=== PATIENT | male | born 1990 | race Hispanic/Latino ===

== ENCOUNTER 2017-11-07 13:30 | Inpatient (IN) ==
[2017-11-08] MEDS ORDERED: LEVOFLOXACIN 750 MG/150 ML BAG IV SCH (07:00)
[2017-11-08] MEDS ORDERED: metroNIDAZOLE 500 MG/100 ML BAG IV SCH (07:00)
--- NOTE | 2017-11-15 06:00 | XRay Report ---
INDICATION: Preoperative evaluation. History of cerebral palsy. TECHNIQUE: AP chest x-ray,portable semiupright COMPARISON: None FINDINGS:There are long length spinal rods in place. There is a foreign device in left upper quadrant consistent with gastrostomy tube. There is a metallic density projected over the cervicothoracic region. Lungs are negative. No parenchymal infiltrate or mass. Heart size and vascularity are normal. No pulmonary edema. No pulmonary congestion. Bella and mediastinum are negative. No pleural fluid. Incidental note is made of degenerative joint disease in the left glenohumeral joint. IMPRESSION: No acute or focal abnormality. Interpreted and Authenticated by: Jono Crow 11/15/17
[2017-11-15 06:47] LABS: Basophils # (Auto) 0 K/mcL (0.0-0.3); Basophils % (Auto) 0.2 % (0.0-2.0); Eosinophils # (Auto) 0.2 K/mcL (0.0-0.7); Granulocytes % (Auto) 61.7 % (38.0-78.0); Lymphocytes # (Auto) 2.7 K/mcL (1.5-4.8); Lymphocytes % (Auto) 28.2 % (15.5-49.0); Mean Cell Volume 95.1 fL (80.0-100.0); Mean Corpuscular HGB Conc 32.3 g/dL (31.0-36.0); Mean Corpuscular Hemoglobin 30.7 pg (26.0-34.0); Monocytes # (Auto) 0.8 K/mcL (0.1-0.9); Monocytes % (Auto) 7.9 % (1.0-12.0); Platelet Count 314 K/mcL (140-440); RBC 3.66 M/mcL (4.50-5.90); Red Cell Distribution Width 16.1 % (11.5-14.5)
[2017-11-15] MEDS ORDERED: LEVOFLOXACIN 750 MG/150 ML BAG IV SCH (07:00)
[2017-11-15] MEDS ORDERED: metroNIDAZOLE 500 MG/100 ML BAG IV SCH (07:00)
[2017-11-15] MEDS ORDERED: IPRATROPIUM/ALBUTEROL 3 ML AMPUL.NEB NEB ONE (07:02)
[2017-11-15] MEDS ORDERED: SCOPOLAMINE 1 PATCH PATCH TOPICAL ONE (07:20)
[2017-11-15] MEDS ORDERED: DEXAMETHASONE 10 MG/ML VIAL IV ONE (07:45)
[2017-11-15] MEDS ORDERED: fentaNYL 250 MCG/5 ML VIAL IV ONE (07:45)
[2017-11-15] MEDS ORDERED: LIDOCAINE HCL/PF 100 MG/5 ML SYRINGE IV ONE (07:45)
[2017-11-15] MEDS ORDERED: PROPOFOL 200 MG/20 ML VIAL IV ONE (07:45)
[2017-11-15] MEDS ORDERED: FAMOTIDINE/PF 20 MG/2 ML VIAL IV ONE (07:45)
[2017-11-15] MEDS ORDERED: KETAMINE 100 MG/ML ML IV ONE (07:45)
[2017-11-15] MEDS ORDERED: MIDAZOLAM 2 MG/2 ML VIAL IV ONE (07:45)
[2017-11-15] MEDS ORDERED: NEOSTIGMINE 1 MG/ML VIAL IV ONE (07:45)
[2017-11-15] MEDS ORDERED: methylPREDNISolone SOD SUCC 125 MG/2 ML VIAL IV ONE (07:45)
[2017-11-15] MEDS ORDERED: GLYCOPYRROLATE 0.2 MG/ML VIAL IV ONE (07:45)
[2017-11-15] MEDS ORDERED: PROMETHAZINE 25 MG/ML VIAL IV ONE (07:45)
[2017-11-15] MEDS ORDERED: PHENYLEPHRINE 10 MG/ML VIAL IV ONE (07:45)
[2017-11-15] MEDS ORDERED: ROCURONIUM 10 MG/ML ML IV ONE (07:45)
[2017-11-15] MEDS ORDERED: ONDANSETRON 4 MG/2 ML VIAL IV ONE (07:45)
[2017-11-15] MEDS ORDERED: fentaNYL 100 MCG/2 ML VIAL IV PRN (08:31)
[2017-11-15] MEDS ORDERED: ACETAMINOPHEN 500 MG/50 ML BOTTLE IV ONE (08:31)
[2017-11-15] MEDS ORDERED: IPRATROPIUM/ALBUTEROL 3 ML AMPUL.NEB NEB PRN (08:31)
[2017-11-15] MEDS ORDERED: ONDANSETRON 4 MG/2 ML VIAL IV PRN ×2 (08:31→10:05)
[2017-11-15] MEDS ORDERED: METHOCARBAMOL 1,000 MG/10 ML VIAL IV PRN (08:31)
[2017-11-15] MEDS ORDERED: NALOXONE HCL 0.4 MG/ML VIAL IV PRN (08:31)
[2017-11-15] MEDS ORDERED: FLUMAZENIL 0.1 MG/ML ML IV PRN (08:31)
[2017-11-15] MEDS ORDERED: MEPERIDINE 25 MG/ML SYRINGE IV PRN (08:31)
[2017-11-15] MEDS ORDERED: LACTATED RINGERS 250 ML IV PRN (08:31)
[2017-11-15] MEDS ORDERED: LACTATED RINGERS 1,000 ML IV SCH (08:45)
--- NOTE | 2017-11-15 09:13 | Brief Operative Note ---
Date of procedure: 11/15/17 Pre-op diagnosis: sacral decubitus; infantile quadriplegic cerebral palsy Post-op diagnosis: same (same) Procedure: permanent end colostomy Grafts/Implants: No Anesthesia: GETA Findings: normal bowel Complications: none Surgeon: Gracy Membreno Estimated blood loss (cc): 20 Specimens Removed/Pathology: none sent Condition: stable Disposition: PACU
[2017-11-15] MEDS ORDERED: ACETAMINOPHEN 1,000 MG/100 ML BOTTLE IV PRN (10:05)
[2017-11-15] MEDS: 0.9 % SODIUM CHLORIDE 1,000 ML IV SCH (10:20)
[2017-11-15] MEDS: IPRATROPIUM/ALBUTEROL 3 ML AMPUL.NEB NEB SCH ×4 (11:00→23:20)
[2017-11-15] MEDS: METOCLOPRAMIDE 10 MG/2 ML VIAL IV SCH ×2 (11:37→17:28)
[2017-11-15] MEDS: metroNIDAZOLE 500 MG/100 ML BAG IV SCH ×2 (11:38→17:28)
[2017-11-15 12:02] LABS: Basophils # (Auto) 0 K/mcL (0.0-0.3); Basophils % (Auto) 0.1 % (0.0-2.0); Eosinophils # (Auto) 0 K/mcL (0.0-0.7); Eosinophils % (Auto) 0.2 % (0.0-7.0); Granulocytes % (Auto) 93.7 % (38.0-78.0); Lymphocytes # (Auto) 0.6 K/mcL (1.5-4.8); Lymphocytes % (Auto) 5.2 % (15.5-49.0); Mean Cell Volume 94.4 fL (80.0-100.0); Mean Corpuscular HGB Conc 32.8 g/dL (31.0-36.0); Monocytes # (Auto) 0.1 K/mcL (0.1-0.9); Monocytes % (Auto) 0.8 % (1.0-12.0); Platelet Count 328 K/mcL (140-440); RBC 3.57 M/mcL (4.50-5.90); Red Cell Distribution Width 16.4 % (11.5-14.5)
[2017-11-15 12:40] LABS: ALT/SGPT 13 U/l (0-40); Albumin 3.4 gm/dL (3.2-5.2); Albumin/Globulin Ratio 0.7 (1.0-2.3); Alkaline Phosphatase 104 U/L (39-117); Bilirubin,Direct < 0.2 mg/dL (0.0-0.3); Blood Urea Nitrogen 11 mg/dl (6-20); Gamma Glutamyl Transpeptidase 113 U/L (8-61)
[2017-11-15] MEDS: PANTOPRAZOLE 40 MG VIAL IV SCH (17:27)
[2017-11-15] MEDS: ACETAMINOPHEN 500 MG/50 ML BOTTLE IV PRN (20:08)
[2017-11-15] MEDS: PHENobarbital 32.4 MG TABLET PT SCH (20:27)
[2017-11-15] MEDS: ZOLPIDEM 5 MG TABLET PO SCH (21:45)
[2017-11-15] MEDS: traZODone HCL 150 MG TABLET PO SCH (22:51)
[2017-11-16] MEDS: metroNIDAZOLE 500 MG/100 ML BAG IV SCH ×4 (01:05→17:03)
[2017-11-16] MEDS: METOCLOPRAMIDE 10 MG/2 ML VIAL IV SCH ×4 (01:05→17:06)
[2017-11-16] MEDS: 0.9 % SODIUM CHLORIDE 1,000 ML IV SCH ×2 (01:30→17:02)
[2017-11-16] MEDS: IPRATROPIUM/ALBUTEROL 3 ML AMPUL.NEB NEB SCH ×7 (03:12→23:20)
[2017-11-16] MEDS: ACETAMINOPHEN 500 MG/50 ML BOTTLE IV PRN ×2 (03:44→11:09)
[2017-11-16 06:44] LABS: ALT/SGPT 11 U/l (0-40); Albumin 2.6 gm/dL (3.2-5.2); Albumin/Globulin Ratio 0.6 (1.0-2.3); Alkaline Phosphatase 84 U/L (39-117); Bilirubin,Direct < 0.2 mg/dL (0.0-0.3); Blood Urea Nitrogen 10 mg/dl (6-20); Gamma Glutamyl Transpeptidase 93 U/L (8-61); Uric Acid 3.9 mg/dL (2.5-8.0)
[2017-11-16 06:50] LABS: Basophils # (Auto) 0 K/mcL (0.0-0.3); Basophils % (Auto) 0.2 % (0.0-2.0); Eosinophils # (Auto) 0 K/mcL (0.0-0.7); Eosinophils % (Auto) 0.1 % (0.0-7.0); Granulocytes % (Auto) 73.1 % (38.0-78.0); Lymphocytes % (Auto) 19.3 % (15.5-49.0); Mean Cell Volume 94.6 fL (80.0-100.0); Mean Corpuscular HGB Conc 32.5 g/dL (31.0-36.0); Mean Corpuscular Hemoglobin 30.7 pg (26.0-34.0); Monocytes # (Auto) 0.7 K/mcL (0.1-0.9); Monocytes % (Auto) 7.3 % (1.0-12.0); Platelet Count 241 K/mcL (140-440); RBC 2.96 M/mcL (4.50-5.90)
[2017-11-16] MEDS: PHENobarbital 32.4 MG TABLET PT SCH ×2 (08:27→20:39)
[2017-11-16] MEDS: LEVOFLOXACIN 500 MG/100 ML BAG IV SCH (08:28)
[2017-11-16] MEDS: PANTOPRAZOLE 40 MG VIAL IV SCH ×2 (08:30→17:08)
--- NOTE | 2017-11-16 11:46 | General Surgery Progress Note ---
Subjective Patient reports: no flatus, no bowel movement, fever Narrative: Note initiated : 11/16/17 at 11:45 am Service Date, if different from initiated Date: [] Patient: Mark Brewer 27 y/o M admitted on 11/15/17 for Permanent Colostomy. Chief Complaint: [Patient is clinically stable. He did have temperature of 100.1 last evening but has been febrile most of the day. Vital signs otherwise stable. His mother seems to feel that his pain has been adequately controlled. White blood count is normal. Hemoglobin is decreased to 9.1] Objective Temp Pulse Resp BP Pulse Ox 98.8 F 110 H 16 102/65 94 11/16/17 11:08 11/16/17 11:19 11/16/17 11:19 11/16/17 11:08 11/16/17 11:08 - Additional Data Intake & Output - Last 24 hours: Intake & Output 11/14/17 11/15/17 11/16/17 11/17/17 05:59 05:59 05:59 05:59 Intake Total 2500 / 2500 260 / 260 Output Total 1080 / 1080 Balance 1420 / 1420 260 / 260 Weight 66 lb 68 lb - General physical appearance moderate pain, cachectic, chronically ill - Eyes other (variable lie movement) - ENT poor half-way - Neck no masses, no bruits, trachea midline, no lymphadectomy, no venous distension - Respiratory other (course tubular breath sounds bilaterally) - Cardiovascular Cardiovascular exam: Present: normal rate and rhythm, +S1, +S2, tachycardia. Absent: JVD - Abdomen tender (rigid abdomen which precludes adequate evaluation; incision looks good; active bowel sounds) - Genitourinary normal penis with no external lesions, testicles present, testicles non-tender - Integumentary other (pressure ulcerations which are being cared for by wound care) - Neurologic other (chronic quadriplegic cerebral palsy; nonresponsive) - Labs 11/16/17 05:12 11/16/17 05:12 Diabetes panel 11/15/17 11/16/17 Range/Units 11:27 05:12 Sodium 139 141 (133-145) mmol/L Potassium 4.1 3.3 (3.3-5.1) mmol/L Chloride 101 107 (96-108) mmol/L Carbon Dioxide 25 21 L (22-30) mmol/L BUN 11 10 (6-20) mg/dl Creatinine 0.5 L 0.4 L (0.7-1.2) mg/dl Glucose 126 H 103 (70-105) mg/dL Calcium 8.7 8.5 L (8.6-10.4) mg/dl AST 13 16 (0-37) U/l ALT 13 11 (0-40) U/l Alkaline Phosphatase 104 84 (39-117) U/L Total Protein 8.0 6.9 (5.9-8.4) gm/dL Albumin 3.4 2.6 L (3.2-5.2) gm/dL Triglycerides 52 78 (<150) mg/dl Calcium panel 11/15/17 11/16/17 Range/Units 11: 05:12 Calcium 8.7 8.5 L (8.6-10.4) mg/dl Phosphorus 2.9 3.1 (2.7-4.5) mg/dL Albumin 3.4 2.6 L (3.2-5.2) gm/dL Pituitary panel 11/15/17 11/16/17 Range/Units 11: 05:12 Sodium 139 141 (133-145) mmol/L Potassium 4.1 3.3 (3.3-5.1) mmol/L Chloride 101 107 (96-108) mmol/L Carbon Dioxide 25 21 L (22-30) mmol/L BUN 11 10 (6-20) mg/dl Creatinine 0.5 L 0.4 L (0.7-1.2) mg/dl Glucose 126 H 103 (70-105) mg/dL Calcium 8.7 8.5 L (8.6-10.4) mg/dl Adrenal panel 11/15/17 11/16/17 Range/Units 11:27 05:12 Sodium 139 141 (133-145) mmol/L Potassium 4.1 3.3 (3.3-5.1) mmol/L Chloride 101 107 (96-108) mmol/L Carbon Dioxide 25 21 L (22-30) mmol/L BUN 11 10 (6-20) mg/dl Creatinine 0.5 L 0.4 L (0.7-1.2) mg/dl Glucose 126 H 103 (70-105) mg/dL Calcium 8.7 8.5 L (8.6-10.4) mg/dl Total Bilirubin < 0.2 < 0.2 (0.0-1.0) mg/dL AST 13 16 (0-37) U/l ALT 13 11 (0-40) U/l Alkaline Phosphatase 104 84 (39-117) U/L Total Protein 8.0 6.9 (5.9-8.4) gm/dL Albumin 3.4 2.6 L (3.2-5.2) gm/dL Assessment and Plan (1) Status post colostomy Status: Acute Assessment and plan: Continue present treatment and support Current Visit: Yes (2) Spastic quadriplegia Status: Chronic Assessment and plan: Continue home medications via PEG tube Current Visit: No (3) Static encephalopathy Status: Chronic Current Visit: No (4) Seizure disorder Status: Chronic Assessment and plan: Continue home medications through PEG tube Current Visit: No (5) CP (cerebral palsy), quadriplegic, infantile Status: Chronic Current Visit: No - Time Spent With Patient Total time spent is greater than 50% in coordination of care (as documented) at patient's floor/unit and/or counseling patient:
[2017-11-16] MEDS: GLYCOPYRROLATE PO SCH ×2 (16:27→20:39)
--- NOTE | 2017-11-16 19:39 | General Surgery Consult Note ---
History of Present Illness Patient information: Note initiated : 11/16/17 at 7:34 pm Service Date, if different from initiated Date: [] Patient: Mark Brewer 27 y/o M admitted on 11/15/17 for Permanent Colostomy. Chief Complaint: [] Consult date: 11/15/17 Requesting physician: Gracy Membreno (Wound Management) History of present illness: This is an established patient at [facility]. Infantile quadriplegia and chronic wasting due to cerebral palsy. Patient recently had a fall with fractured femur and underwent ORIF by Dr. Nolasco. Subsequently developed a grade four sacral pressure ulcer with undermining and tunneling extending superiorly. This will NOT heal. I requested Dr. Gracy Membreno to help out with a diverting colostomy for facilitating his nursing care by mother and sister. Medications and Allergies Home Medications Medication Instructions Recorded Confirmed Type acetaminophen 325 mg PO PRN PRN 03/23/16 11/15/17 History albuterol sulfate 2.5 mg/3 mL 2.5 mg INHALATION Q6H ml 03/23/16 11/14/17 History (0.083 %) solution for nebulization hydroxyzine HCl 25 mg tablet 25 mg PO QHS tab 03/23/16 11/15/17 History phenobarbital 64.8 mg tablet 64.8 mg PO BID 03/23/16 11/15/17 History transparent dressings 2 3/8" X 2 See Dose Instructions .ROUTE 03/23/16 11/15/17 History 3/4" .MEDSUPPLY trazodone 100 mg tablet 300 mg PO QDAY tab 03/23/16 11/15/17 History zolpidem 10 mg tablet 10 mg PO HS 03/23/16 11/15/17 History hydrocodone 5 mg-acetaminophen 325 1 tab PO Q8H PRN #30 tab 04/11/16 11/15/17 Rx mg tablet glycopyrrolate 1 mg/5 mL (0.2 5 ml PO TID ml 10/26/17 11/15/17 History mg/mL) oral solution cefuroxime axetil 250 mg tablet 250 mg PO Q12H 11/13/17 11/15/17 History Methenamine Hippurate 1 g PO TID 11/14/17 11/15/17 History Allergies Allergy/AdvReac Type Severity Reaction Status Date / Time cefepime Allergy Intermediate Rash Verified 11/14/17 16:14 Exam Temp Pulse Resp BP Pulse Ox 98.8 F 112 H 16 133/92 100 11/16/17 16:00 11/16/17 16:00 11/16/17 16:00 11/16/17 16:00 11/16/17 16:00 - General physical appearance other (Chronically Malnourished due to infantile quadriplegia and cerebral palsy. At baseline and in NO distress. Mucoid sputum back of throat. Mucous membranes moist and pink. At baseline. ) - Eyes PERRL - ENT normal mucosa, no congestion - Head Head exam IM: Present: atraumatic - Neck no masses, no bruits, trachea midline, no venous distension - Cardiovascular Cardiovascular exam IM: Present: normal rate and rhythm - Respiratory normal expansion, normal respiratory effort - Abdomen Abdomen: Present: soft, non tender (Post op ileus. dressing CDI. Stoma pink and viable. mucoid blood tinged drainage in bag. No flatus . ) - Genitourinary Present: normal penis with no external lesions, other (Mcgarry catheter draining clear urinne. ) - Integumentary Present: other (Sacral pressure ulcer, grade 4 with undermining and tunneling superiorly. ) - Neurologic Present: other (Infantile quadriplegia due to cerebal palsy. Bed confined. ) - Musculoskeletal Present: other (Bed coninfened / Wasting of extremities due to quadriplegia.) Results - Labs 11/16/17 05:12 11/16/17 05:12 Abnormal lab results 11/16/17 11/16/17 Range/Units 05:12 05:12 RBC 2.96 L (4.50-5.90) M/mcL Hgb 9.1 L (13.5-16.5) g/dL Hct 28.0 L (41.0-55.0) % RDW 16.0 H (11.5-14.5) % MPV 10.7 H (7.4-10.4) fL Carbon Dioxide 21 L (22-30) mmol/L Creatinine 0.4 L (0.7-1.2) mg/dl Calcium 8.5 L (8.6-10.4) mg/dl GGT 93 H (8-61) U/L Albumin 2.6 L (3.2-5.2) gm/dL Globulin 4.3 H (2.2-3.7) gm/dL Albumin/Globulin Ratio 0.6 L (1.0-2.3) Diabetes panel 11/16/17 Range/Units 05:12 Sodium 141 (133-145) mmol/L Potassium 3.3 (3.3-5.1) mmol/L Chloride 107 (96-108) mmol/L Carbon Dioxide 21 L (22-30) mmol/L BUN 10 (6-20) mg/dl Creatinine 0.4 L (0.7-1.2) mg/dl Glucose 103 (70-105) mg/dL Calcium 8.5 L (8.6-10.4) mg/dl AST 16 (0-37) U/l ALT 11 (0-40) U/l Alkaline Phosphatase 84 (39-117) U/L Total Protein 6.9 (5.9-8.4) gm/dL Albumin 2.6 L (3.2-5.2) gm/dL Triglycerides 78 (<150) mg/dl Calcium panel 11/16/17 Range/Units 05:12 Calcium 8.5 L (8.6-10.4) mg/dl Phosphorus 3.1 (2.7-4.5) mg/dL Albumin 2.6 L (3.2-5.2) gm/dL Pituitary panel 11/16/17 Range/Units 05:12 Sodium 141 (133-145) mmol/L Potassium 3.3 (3.3-5.1) mmol/L Chloride 107 (96-108) mmol/L Carbon Dioxide 21 L (22-30) mmol/L BUN 10 (6-20) mg/dl Creatinine 0.4 L (0.7-1.2) mg/dl Glucose 103 (70-105) mg/dL Calcium 8.5 L (8.6-10.4) mg/dl Adrenal panel 11/16/17 Range/Units 05:12 Sodium 141 (133-145) mmol/L Potassium 3.3 (3.3-5.1) mmol/L Chloride 107 (96-108) mmol/L Carbon Dioxide 21 L (22-30) mmol/L BUN 10 (6-20) mg/dl Creatinine 0.4 L (0.7-1.2) mg/dl Glucose 103 (70-105) mg/dL Calcium 8.5 L (8.6-10.4) mg/dl Total Bilirubin < 0.2 (0.0-1.0) mg/dL AST 16 (0-37) U/l ALT 11 (0-40) U/l Alkaline Phosphatase 84 (39-117) U/L Total Protein 6.9 (5.9-8.4) gm/dL Albumin 2.6 L (3.2-5.2) gm/dL All other labs normal. Assessment and Plan (1) Pressure ulcer,stage IV, down to muscle or bone Assessment: Satisfactory post operative progress. Plan: Supportive care. Continue current wound care. Following patient in hospital. APPRECIATE DR. MEMBRENO'S HELP in this patient's care / management. Status: Chronic Priority: Medium Qualifiers: Pressure ulcer location: sacral region Qualified Code(s): L89.154 - Pressure ulcer of sacral region, stage 4 (2) Pressure ulcer, sacrum Status: Chronic Priority: Low Qualifiers: Pressure ulcer stage: stage 4 Qualified Code(s): L89.154 - Pressure ulcer of sacral region, stage 4 (3) Status post colostomy Status: Acute Priority: High
[2017-11-16] MEDS: ZOLPIDEM 5 MG TABLET PO SCH (20:38)
[2017-11-16] MEDS: traZODone HCL 150 MG TABLET PO SCH (20:38)
[2017-11-16] MEDS ORDERED: NON FORMULARY MEDICATION 1 DOSE MISCELL PO SCH (21:00)
[2017-11-17] MEDS: METOCLOPRAMIDE 10 MG/2 ML VIAL IV SCH ×5 (00:07→23:38)
[2017-11-17] MEDS: metroNIDAZOLE 500 MG/100 ML BAG IV SCH ×5 (00:07→23:39)
[2017-11-17] MEDS: IPRATROPIUM/ALBUTEROL 3 ML AMPUL.NEB NEB SCH ×6 (02:40→23:38)
[2017-11-17] MEDS: 0.9 % SODIUM CHLORIDE 1,000 ML IV SCH ×3 (02:59→17:22)
[2017-11-17 06:30] LABS: Basophils # (Auto) 0 K/mcL (0.0-0.3); Basophils % (Auto) 0.1 % (0.0-2.0); Eosinophils # (Auto) 0 K/mcL (0.0-0.7); Eosinophils % (Auto) 0.1 % (0.0-7.0); Granulocytes % (Auto) 76.8 % (38.0-78.0); Lymphocytes # (Auto) 1.8 K/mcL (1.5-4.8); Mean Corpuscular HGB Conc 32.7 g/dL (31.0-36.0); Mean Corpuscular Hemoglobin 31.1 pg (26.0-34.0); Monocytes # (Auto) 0.5 K/mcL (0.1-0.9); Platelet Count 244 K/mcL (140-440); RBC 3.13 M/mcL (4.50-5.90); Red Cell Distribution Width 16.3 % (11.5-14.5)
[2017-11-17 07:09] LABS: ALT/SGPT 13 U/l (0-40); Albumin 3.1 gm/dL (3.2-5.2); Albumin/Globulin Ratio 0.8 (1.0-2.3); Alkaline Phosphatase 88 U/L (39-117); Bilirubin,Direct < 0.2 mg/dL (0.0-0.3); Blood Urea Nitrogen 5 mg/dl (6-20); Gamma Glutamyl Transpeptidase 91 U/L (8-61); Uric Acid 3.8 mg/dL (2.5-8.0)
[2017-11-17] MEDS: LEVOFLOXACIN 500 MG/100 ML BAG IV SCH (09:22)
[2017-11-17] MEDS: PANTOPRAZOLE 40 MG VIAL IV SCH ×2 (09:23→17:18)
[2017-11-17] MEDS: PHENobarbital 32.4 MG TABLET PT SCH ×2 (09:30→20:26)
[2017-11-17] MEDS: GLYCOPYRROLATE PO SCH ×3 (09:34→20:26)
[2017-11-17] MEDS ORDERED: MAGNESIUM HYDROXIDE 30 ML ORAL.SUSP PO ONE (14:32)
--- NOTE | 2017-11-17 14:35 | General Surgery Progress Note ---
Subjective Patient reports: other (patient appears to be clinically stable. He does not appear to be less restless.) Narrative: Note initiated : 11/17/17 at 2:33 pm Service Date, if different from initiated Date: [] Patient: Mark Brewer 27 y/o M admitted on 11/15/17 for Permanent Colostomy. Chief Complaint: [] Objective Temp Pulse Resp BP Pulse Ox 99.2 F H 90 16 116/69 100 11/17/17 11:29 11/17/17 10:25 11/17/17 11:29 11/17/17 11:29 11/17/17 11:29 - Additional Data Intake & Output - Last 24 hours: Intake & Output 11/15/17 11/16/17 11/17/17 11/18/17 05:59 05:59 05:59 05:59 Intake Total 2500 / 2500 1610 / 1610 1300 / 1300 Output Total 1080 / 1080 1135 / 1135 Balance 1420 / 1420 475 / 475 1300 / 1300 Weight 66 lb 68 lb 70 lb 8 oz - General physical appearance moderate pain, cachectic, chronically ill - Eyes other ( Patient is clinically blind) - ENT normal pinna, normal nares, normal mucosa, no hearing loss, no congestion - Neck no masses, no bruits, trachea midline, no lymphadectomy, no venous distension - Respiratory other ( still with coarse tubular breath sounds that appear to be upper airway) - Cardiovascular Cardiovascular exam: Present: tachycardia. Absent: JVD - Abdomen tender ( reacts to discomfort along the incision; stoma looks good and there is a small amount of gas in his bag) - Integumentary other ( pressure ulceration so stable and being cared for by wound care) - Neurologic other ( quadriplegic) - Musculoskeletal other (quadriplegic) - Psychiatric other (disoriented to person place and time; no intelligible speech) - Labs 11/17/17 05:21 11/17/17 05:21 Diabetes panel 11/17/17 Range/Units 05:21 Sodium 141 (133-145) mmol/L Potassium 3.4 (3.3-5.1) mmol/L Chloride 104 (96-108) mmol/L Carbon Dioxide 23 (22-30) mmol/L BUN 5 L (6-20) mg/dl Creatinine 0.4 L (0.7-1.2) mg/dl Glucose 90 (70-105) mg/dL Calcium 8.6 (8.6-10.4) mg/dl AST 22 (0-37) U/l ALT 13 (0-40) U/l Alkaline Phosphatase 88 (39-117) U/L Total Protein 7.1 (5.9-8.4) gm/dL Albumin 3.1 L (3.2-5.2) gm/dL Triglycerides 57 (<150) mg/dl Calcium panel 11/17/17 Range/Units 05:21 Calcium 8.6 (8.6-10.4) mg/dl Phosphorus 2.7 (2.7-4.5) mg/dL Albumin 3.1 L (3.2-5.2) gm/dL Pituitary panel 11/17/17 Range/Units 05:21 Sodium 141 (133-145) mmol/L Potassium 3.4 (3.3-5.1) mmol/L Chloride 104 (96-108) mmol/L Carbon Dioxide 23 (22-30) mmol/L BUN 5 L (6-20) mg/dl Creatinine 0.4 L (0.7-1.2) mg/dl Glucose 90 (70-105) mg/dL Calcium 8.6 (8.6-10.4) mg/dl Adrenal panel 11/17/17 Range/Units 05:21 Sodium 141 (133-145) mmol/L Potassium 3.4 (3.3-5.1) mmol/L Chloride 104 (96-108) mmol/L Carbon Dioxide 23 (22-30) mmol/L BUN 5 L (6-20) mg/dl Creatinine 0.4 L (0.7-1.2) mg/dl Glucose 90 (70-105) mg/dL Calcium 8.6 (8.6-10.4) mg/dl Total Bilirubin 0.2 (0.0-1.0) mg/dL AST 22 (0-37) U/l ALT 13 (0-40) U/l Alkaline Phosphatase 88 (39-117) U/L Total Protein 7.1 (5.9-8.4) gm/dL Albumin 3.1 L (3.2-5.2) gm/dL Assessment and Plan (1) Status post colostomy Status: Acute Assessment and plan: Continue present treatment and support We'll start milk of magnesia 4 doses to stimulate colonic emptying so that I can start feedings Current Visit: Yes (2) Spastic quadriplegia Status: Chronic Assessment and plan: Continue home medications via PEG tube Current Visit: No (3) Static encephalopathy Status: Chronic Current Visit: No (4) Seizure disorder Status: Chronic Assessment and plan: Continue home medications through PEG tube Current Visit: No (5) CP (cerebral palsy), quadriplegic, infantile Status: Chronic Current Visit: No - Time Spent With Patient Total time spent is greater than 50% in coordination of care (as documented) at patient's floor/unit and/or counseling patient:
--- NOTE | 2017-11-17 16:26 | General Surgery Progress Note ---
Subjective Narrative: Note initiated : 11/17/17 at 4:23 pm Service Date, if different from initiated Date: [] Patient: Mark Brewer 27 y/o M admitted on 11/15/17 for Permanent Colostomy. Chief Complaint: []P O Day #2. Uneventful night yesterday. Low grade fever. Good cough. No expectoration, Incision site dressing intact. Stoma viable. flatus + Wounds examined Sacral Grade 4 Decubitus and bilateral trochanteric decubitus and pressure ulcers. Objective Temp Pulse Resp BP Pulse Ox 99.2 F H 100 H 16 116/69 100 11/17/17 11:29 11/17/17 15:13 11/17/17 15:13 11/17/17 11:29 11/17/17 11:29 VSS. No changes ZAC. L/E Wounds : Grade 4 Sacral pressure ulcer . Grade 2 / 3 bilateral greater trochanteric pressure ulcers. - Additional Data Intake & Output - Last 24 hours: Intake & Output 11/15/17 11/16/17 11/17/17 11/18/17 05:59 05:59 05:59 05:59 Intake Total 2500 / 2500 1610 / 1610 1300 / 1300 Output Total 1080 / 1080 1135 / 1135 Balance 1420 / 1420 475 / 475 1300 / 1300 Weight 66 lb 68 lb 70 lb 8 oz - Labs 11/17/17 05:21 11/17/17 05:21 Diabetes panel 11/17/17 Range/Units 05:21 Sodium 141 (133-145) mmol/L Potassium 3.4 (3.3-5.1) mmol/L Chloride 104 (96-108) mmol/L Carbon Dioxide 23 (22-30) mmol/L BUN 5 L (6-20) mg/dl Creatinine 0.4 L (0.7-1.2) mg/dl Glucose 90 (70-105) mg/dL Calcium 8.6 (8.6-10.4) mg/dl AST 22 (0-37) U/l ALT 13 (0-40) U/l Alkaline Phosphatase 88 (39-117) U/L Total Protein 7.1 (5.9-8.4) gm/dL Albumin 3.1 L (3.2-5.2) gm/dL Triglycerides 57 (<150) mg/dl Calcium panel 11/17/17 Range/Units 05:21 Calcium 8.6 (8.6-10.4) mg/dl Phosphorus 2.7 (2.7-4.5) mg/dL Albumin 3.1 L (3.2-5.2) gm/dL Pituitary panel 11/17/17 Range/Units 05:21 Sodium 141 (133-145) mmol/L Potassium 3.4 (3.3-5.1) mmol/L Chloride 104 (96-108) mmol/L Carbon Dioxide 23 (22-30) mmol/L BUN 5 L (6-20) mg/dl Creatinine 0.4 L (0.7-1.2) mg/dl Glucose 90 (70-105) mg/dL Calcium 8.6 (8.6-10.4) mg/dl Adrenal panel 11/17/17 Range/Units 05:21 Sodium 141 (133-145) mmol/L Potassium 3.4 (3.3-5.1) mmol/L Chloride 104 (96-108) mmol/L Carbon Dioxide 23 (22-30) mmol/L BUN 5 L (6-20) mg/dl Creatinine 0.4 L (0.7-1.2) mg/dl Glucose 90 (70-105) mg/dL Calcium 8.6 (8.6-10.4) mg/dl Total Bilirubin 0.2 (0.0-1.0) mg/dL AST 22 (0-37) U/l ALT 13 (0-40) U/l Alkaline Phosphatase 88 (39-117) U/L Total Protein 7.1 (5.9-8.4) gm/dL Albumin 3.1 L (3.2-5.2) gm/dL Assessment and Plan (1) Pressure ulcer,stage IV, down to muscle or bone Status: Chronic Current Visit: Yes (2) Pressure ulcer, sacrum Status: Chronic Current Visit: Yes (3) Status post colostomy Status: Acute Current Visit: Yes - Narrative A/P Narrative: Assessment: Pressure Ulcers wound care reviewed with nursing staff and patient' s mother CG. Plan: Clean sacral pressure ulcer with NS and apply Aquacel AG sheet and Mepilex bordered foam dressing. May remove dressing to clean wound as necessary and reapply. IF the foam dressing is contaminated with stool or purulent debris, REPLACE. Hips and trochanteric wounds to be treated same. Clean with NS . Dry and apply Mepilex foam bordered dressing . O K to discharge from wound care point of view when cleared by Dr. Membreno. If discharged, Follow up at wound clinic in ONE week. - Time Spent With Patient Total time spent is greater than 50% in coordination of care (as documented) at patient's floor/unit and/or counseling patient: 15 - 24 minutes
[2017-11-17] MEDS: traZODone HCL 150 MG TABLET PO SCH (20:26)
[2017-11-17] MEDS: ZOLPIDEM 5 MG TABLET PO SCH (20:26)
[2017-11-18] MEDS ORDERED: MAGNESIUM HYDROXIDE 30 ML ORAL.SUSP ONE (02:46)
[2017-11-18] MEDS: MAGNESIUM HYDROXIDE 30 ML ORAL.SUSP PO SCH ×6 (02:48→21:23)
[2017-11-18] MEDS: 0.9 % SODIUM CHLORIDE 1,000 ML IV SCH ×2 (02:53→20:26)
[2017-11-18] MEDS: IPRATROPIUM/ALBUTEROL 3 ML AMPUL.NEB NEB SCH ×6 (02:54→23:12)
[2017-11-18] MEDS: metroNIDAZOLE 500 MG/100 ML BAG IV SCH ×3 (05:17→18:08)
[2017-11-18] MEDS: METOCLOPRAMIDE 10 MG/2 ML VIAL IV SCH ×3 (05:17→18:06)
[2017-11-18 07:16] LABS: Basophils # (Auto) 0 K/mcL (0.0-0.3); Basophils % (Auto) 0.2 % (0.0-2.0); Eosinophils # (Auto) 0 K/mcL (0.0-0.7); Eosinophils % (Auto) 0.2 % (0.0-7.0); Granulocytes % (Auto) 78.4 % (38.0-78.0); Lymphocytes # (Auto) 1.6 K/mcL (1.5-4.8); Lymphocytes % (Auto) 15.5 % (15.5-49.0); Mean Cell Volume 95.3 fL (80.0-100.0); Mean Corpuscular HGB Conc 32.8 g/dL (31.0-36.0); Mean Corpuscular Hemoglobin 31.2 pg (26.0-34.0); Monocytes # (Auto) 0.6 K/mcL (0.1-0.9); Monocytes % (Auto) 5.7 % (1.0-12.0); Platelet Count 285 K/mcL (140-440); Red Cell Distribution Width 15.7 % (11.5-14.5)
[2017-11-18 08:01] LABS: ALT/SGPT 11 U/l (0-40); Albumin 2.8 gm/dL (3.2-5.2); Albumin/Globulin Ratio 0.7 (1.0-2.3); Alkaline Phosphatase 86 U/L (39-117); Bilirubin,Direct < 0.2 mg/dL (0.0-0.3); Blood Urea Nitrogen 4 mg/dl (6-20); Gamma Glutamyl Transpeptidase 90 U/L (8-61); Uric Acid 4.1 mg/dL (2.5-8.0)
[2017-11-18] MEDS: GLYCOPYRROLATE PO SCH ×3 (08:20→21:31)
[2017-11-18] MEDS: PHENobarbital 32.4 MG TABLET PT SCH ×2 (08:20→20:25)
[2017-11-18] MEDS: LEVOFLOXACIN 500 MG/100 ML BAG IV SCH (08:20)
[2017-11-18] MEDS: PANTOPRAZOLE 40 MG VIAL IV SCH ×2 (08:21→18:08)
[2017-11-18] MEDS ORDERED: POTASSIUM PHOSPHATE 40 MEQ in DEXTROSE 5% IN WATER 500 ML IV ONE ×2 (09:30→13:30)
[2017-11-18] MEDS: SIMETHICONE 40 MG/0.6 ML ML PO PRN ×2 (10:27→21:25)
--- NOTE | 2017-11-18 13:53 | XRay Report ---
CLINICAL INFORMATION: Postsurgical ileus TECHNIQUE: Portable AP supine abdomen COMPARISON: None. FINDINGS: There are vertical skin bruce. There are spinal stabilization rods which extend from the pelvis cephalad to the thoracic spine. Patient has undergone previous posterior bony spinal fusion and decompression. There is gas throughout the colon. Patient apparently has a colostomy. This is not well visualized. Transverse colon is distended and measures 7 cm in cross-sectional diameter. No significant small bowel dilatation. Appearance is consistent with ileus. No evidence for mechanical small bowel obstruction. No biliary or portal venous gas. No pneumatosis. IMPRESSION: 1. Prominent gas-filled colon consistent with postoperative ileus. 2. No evidence for mechanical small bowel obstruction Interpreted and Authenticated by: Jono Crow 11/18/17
--- NOTE | 2017-11-18 14:04 | General Surgery Progress Note ---
Subjective Narrative: Note initiated : 11/18/17 at 2:01 pm Service Date, if different from initiated Date: [] Patient: Mark Brewer 27 y/o M admitted on 11/15/17 for Permanent Colostomy. Chief Complaint: [patient is clinically stable. He has some abdominal distention but has been putting out more gas in his stoma appliance. X-ray shows large volume of gas in his transverse colon but without small bowel distention. There is a small amount of mucus in his stoma pouch but no significant stool. He is otherwise stable.] Objective Temp Pulse Resp BP Pulse Ox 98.8 F 125 H 18 125/78 94 11/18/17 11:54 11/18/17 10:40 11/18/17 11:54 11/18/17 11:54 11/18/17 11:54 - Additional Data Intake & Output - Last 24 hours: Intake & Output 11/16/17 11/17/17 11/18/17 11/19/17 05:59 05:59 05:59 05:59 Intake Total 2500 / 2500 1610 / 1610 2500 / 2500 100 / 100 Output Total 1080 / 1080 1135 / 1135 1050 / 1050 Balance 1420 / 1420 475 / 475 1450 / 1450 100 / 100 Weight 68 lb 70 lb 8 oz 71 lb 8 oz - General physical appearance cachectic, chronically ill - Respiratory other (few coarse tubular breath sounds) - Cardiovascular Cardiovascular exam: Present: +S1, +S2, tachycardia. Absent: JVD - Abdomen distended ( distended with active bowel sounds; healthy stoma in right lower quadrant; incision is unremarkable) - Psychiatric oriented to time, oriented to person, oriented to place, speech is normal, memory intact - Labs 11/18/17 05:26 11/18/17 05:26 Diabetes panel 11/18/17 Range/Units 05:26 Sodium 139 (133-145) mmol/L Potassium 2.6 L* (3.3-5.1) mmol/L Chloride 99 (96-108) mmol/L Carbon Dioxide 24 (22-30) mmol/L BUN 4 L (6-20) mg/dl Creatinine 0.4 L (0.7-1.2) mg/dl Glucose 99 (70-105) mg/dL Calcium 8.2 L (8.6-10.4) mg/dl AST 14 (0-37) U/l ALT 11 (0-40) U/l Alkaline Phosphatase 86 (39-117) U/L Total Protein 6.8 (5.9-8.4) gm/dL Albumin 2.8 L (3.2-5.2) gm/dL Triglycerides 63 (<150) mg/dl Calcium panel 11/18/17 Range/Units 05:26 Calcium 8.2 L (8.6-10.4) mg/dl Phosphorus 2.4 L (2.7-4.5) mg/dL Albumin 2.8 L (3.2-5.2) gm/dL Pituitary panel 11/18/17 Range/Units 05:26 Sodium 139 (133-145) mmol/L Potassium 2.6 L* (3.3-5.1) mmol/L Chloride 99 (96-108) mmol/L Carbon Dioxide 24 (22-30) mmol/L BUN 4 L (6-20) mg/dl Creatinine 0.4 L (0.7-1.2) mg/dl Glucose 99 (70-105) mg/dL Calcium 8.2 L (8.6-10.4) mg/dl Adrenal panel 11/18/17 Range/Units 05:26 Sodium 139 (133-145) mmol/L Potassium 2.6 L* (3.3-5.1) mmol/L Chloride 99 (96-108) mmol/L Carbon Dioxide 24 (22-30) mmol/L BUN 4 L (6-20) mg/dl Creatinine 0.4 L (0.7-1.2) mg/dl Glucose 99 (70-105) mg/dL Calcium 8.2 L (8.6-10.4) mg/dl Total Bilirubin < 0.2 (0.0-1.0) mg/dL AST 14 (0-37) U/l ALT 11 (0-40) U/l Alkaline Phosphatase 86 (39-117) U/L Total Protein 6.8 (5.9-8.4) gm/dL Albumin 2.8 L (3.2-5.2) gm/dL Assessment and Plan (1) Status post colostomy Status: Acute Assessment and plan: Continue present treatment and support We'll start milk of magnesia 4 doses to stimulate colonic emptying so that I can start feedings Current Visit: Yes (2) Spastic quadriplegia Status: Chronic Assessment and plan: Continue home medications via PEG tube Current Visit: No (3) Static encephalopathy Status: Chronic Current Visit: No (4) Seizure disorder Status: Chronic Assessment and plan: Continue home medications through PEG tube Current Visit: No (5) CP (cerebral palsy), quadriplegic, infantile Status: Chronic Current Visit: No - Time Spent With Patient Total time spent is greater than 50% in coordination of care (as documented) at patient's floor/unit and/or counseling patient:
[2017-11-18] MEDS: ZOLPIDEM 5 MG TABLET PO SCH (21:22)
[2017-11-18] MEDS: traZODone HCL 150 MG TABLET PO SCH (23:03)
[2017-11-19] MEDS: METOCLOPRAMIDE 10 MG/2 ML VIAL IV SCH ×4 (00:05→18:07)
[2017-11-19] MEDS: metroNIDAZOLE 500 MG/100 ML BAG IV SCH ×4 (00:06→18:07)
[2017-11-19] MEDS: IPRATROPIUM/ALBUTEROL 3 ML AMPUL.NEB NEB SCH ×6 (03:00→23:11)
[2017-11-19] MEDS: LEVOFLOXACIN 500 MG/100 ML BAG IV SCH (09:03)
[2017-11-19] MEDS: PANTOPRAZOLE 40 MG VIAL IV SCH ×2 (09:03→18:07)
[2017-11-19] MEDS: 0.9 % SODIUM CHLORIDE 1,000 ML IV SCH ×2 (09:03→22:51)
[2017-11-19] MEDS: SIMETHICONE 40 MG/0.6 ML ML PO PRN (09:05)
[2017-11-19] MEDS: GLYCOPYRROLATE PO SCH ×3 (09:12→20:32)
[2017-11-19] MEDS: PHENobarbital 32.4 MG TABLET PT SCH ×3 (09:12→20:31)
--- NOTE | 2017-11-19 13:15 | General Surgery Progress Note ---
Subjective Patient reports: flatus, bowel movement, diarrhea, afebrile Narrative: Note initiated : 11/19/17 at 1:14 pm Service Date, if different from initiated Date: [] Patient: Mark Brewer 27 y/o M admitted on 11/15/17 for Permanent Colostomy. Chief Complaint: [patient appears to be clinically improving.. Vital signs have been stable and he is afebrile. He is finally started having large volume output of stool and gas via his stoma. He does not have any respiratory difficulty. His incision and stoma unremarkable.white blood count is 10 and hemoglobin is 10. Electrolytes are good.] Objective Temp Pulse Resp BP Pulse Ox 98.7 F 90 18 130/78 100 11/19/17 11:31 11/19/17 06:58 11/19/17 11:31 11/19/17 11:31 11/19/17 11:31 - Additional Data Intake & Output - Last 24 hours: Intake & Output 11/17/17 11/18/17 11/19/17 11/20/17 05:59 05:59 05:59 05:59 Intake Total 1610 / 1610 2500 / 2500 2593.1818 / 2593.1818 100 / 100 Output Total 1135 / 1135 1050 / 1050 1225 / 1225 Balance 475 / 475 1450 / 1450 1368.1818 / 1368.1818 100 / 100 Weight 70 lb 8 oz 71 lb 8 oz 69 lb - General physical appearance cachectic, chronically ill, other - Eyes other (clinically blind) - ENT normal pinna, normal nares, normal mucosa, no hearing loss, no congestion - Neck no masses, no bruits, trachea midline, no lymphadectomy, no venous distension - Respiratory other ( decrease in tubular breast) - Cardiovascular Cardiovascular exam: Present: normal rate and rhythm, RRR, +S1, +S2. Absent: JVD, tachycardia - Abdomen distended ( abdomen is less distended; he has good active bowel sounds; he has voluntary guarding; incision is unremarkable; stoma right lower quadrant is functioning and is healthy) - Integumentary other ( pressure ulcerations as noted) - Neurologic other ( spastic quadriplegia) - Musculoskeletal other ( multiple flexion contractures) - Psychiatric other ( disoriented 3) - Labs 11/18/17 05:26 11/18/17 05:26 Assessment and Plan (1) Status post colostomy Status: Acute Assessment and plan: Continue present treatment and support Start full liquid feedings per gastrostomy tube Current Visit: Yes (2) Spastic quadriplegia Status: Chronic Assessment and plan: Continue home medications via PEG tube Current Visit: No (3) Static encephalopathy Status: Chronic Current Visit: No (4) Seizure disorder Status: Chronic Assessment and plan: Continue home medications through PEG tube Current Visit: No (5) CP (cerebral palsy), quadriplegic, infantile Status: Chronic Current Visit: No - Time Spent With Patient Total time spent is greater than 50% in coordination of care (as documented) at patient's floor/unit and/or counseling patient:
[2017-11-19] MEDS: ZOLPIDEM 5 MG TABLET PO SCH (22:42)
[2017-11-19] MEDS: traZODone HCL 150 MG TABLET PO SCH (23:47)
[2017-11-20] MEDS: METOCLOPRAMIDE 10 MG/2 ML VIAL IV SCH ×3 (00:03→13:07)
[2017-11-20] MEDS: metroNIDAZOLE 500 MG/100 ML BAG IV SCH ×3 (00:03→13:05)
[2017-11-20] MEDS: IPRATROPIUM/ALBUTEROL 3 ML AMPUL.NEB NEB SCH ×6 (03:07→23:07)
[2017-11-20] MEDS: SIMETHICONE 40 MG/0.6 ML ML PO PRN ×2 (03:47→22:20)
[2017-11-20 05:50] LABS: Basophils # (Auto) 0 K/mcL (0.0-0.3); Basophils % (Auto) 0.3 % (0.0-2.0); Eosinophils # (Auto) 0.1 K/mcL (0.0-0.7); Eosinophils % (Auto) 0.8 % (0.0-7.0); Granulocytes % (Auto) 59.5 % (38.0-78.0); Lymphocytes % (Auto) 29.6 % (15.5-49.0); Mean Cell Volume 92.6 fL (80.0-100.0); Mean Corpuscular HGB Conc 33.8 g/dL (31.0-36.0); Mean Corpuscular Hemoglobin 31.3 pg (26.0-34.0); Monocytes # (Auto) 0.7 K/mcL (0.1-0.9); Monocytes % (Auto) 9.8 % (1.0-12.0); Platelet Count 306 K/mcL (140-440); RBC 3.05 M/mcL (4.50-5.90)
[2017-11-20] MEDS: 0.9 % SODIUM CHLORIDE 1,000 ML IV SCH ×2 (05:51→13:01)
[2017-11-20 06:16] LABS: ALT/SGPT 10 U/l (0-40); Albumin 2.8 gm/dL (3.2-5.2); Albumin/Globulin Ratio 0.8 (1.0-2.3); Alkaline Phosphatase 75 U/L (39-117); Bilirubin,Direct < 0.2 mg/dL (0.0-0.3); Blood Urea Nitrogen 4 mg/dl (6-20); Gamma Glutamyl Transpeptidase 87 U/L (8-61); Uric Acid 3.5 mg/dL (2.5-8.0)
[2017-11-20] MEDS ORDERED: POTASSIUM PHOSPHATE 40 MEQ in DEXTROSE 5% IN WATER 500 ML IV ONE ×3 (07:20→12:00)
[2017-11-20] MEDS: PANTOPRAZOLE 40 MG VIAL IV SCH (07:43)
[2017-11-20] MEDS: LEVOFLOXACIN 500 MG/100 ML BAG IV SCH (08:30)
[2017-11-20] MEDS: PHENobarbital 32.4 MG TABLET PT SCH ×2 (10:05→20:15)
[2017-11-20] MEDS: GLYCOPYRROLATE PO SCH ×3 (13:05→22:22)
--- NOTE | 2017-11-20 15:08 | General Surgery Progress Note ---
Subjective Patient reports: afebrile, other (patient continues to do well) Narrative: Note initiated : 11/20/17 at 3:06 pm Service Date, if different from initiated Date: [] Patient: Mark Brewer 27 y/o M admitted on 11/15/17 for Permanent Colostomy. Chief Complaint: [patient continues to do well. He is having multiple large bowel movements with passage of large volume of flatus.. His abdomen is less distended. His stoma looks good and his incision is unremarkable.] Objective Temp Pulse Resp BP Pulse Ox 98.9 F 90 18 108/76 97 11/20/17 11:04 11/20/17 06:58 11/20/17 11:04 11/20/17 11:04 11/20/17 11:04 - Additional Data Intake & Output - Last 24 hours: Intake & Output 11/18/17 11/19/17 11/20/17 11/21/17 05:59 05:59 05:59 05:59 Intake Total 2500 / 2500 2593.1818 / 2593.1818 2160 / 2160 567 / 567 Output Total 1050 / 1050 1225 / 1225 2625 / 2625 100 / 100 Balance 1450 / 1450 1368.1818 / 1368.1818 -465 / -465 467 / 467 Weight 71 lb 8 oz 69 lb 71 lb - Neck no masses, no bruits, trachea midline, no lymphadectomy, no venous distension - Respiratory normal expansion, normal respiratory effort, clear to percussion, clear to auscultation - Cardiovascular Cardiovascular exam: Present: normal rate and rhythm, RRR, +S1, +S2, tachycardia. Absent: JVD - Abdomen distended (mildly distended with less tenderness and guarding; good hyperactive bowel sounds) - Labs 11/20/17 04:49 11/20/17 04:49 Diabetes panel 11/20/17 Range/Units 04:49 Sodium 139 (133-145) mmol/L Potassium 2.8 L* (3.3-5.1) mmol/L Chloride 100 (96-108) mmol/L Carbon Dioxide 28 (22-30) mmol/L BUN 4 L (6-20) mg/dl Creatinine 0.3 L (0.7-1.2) mg/dl Glucose 115 H (70-105) mg/dL Calcium 7.7 L (8.6-10.4) mg/dl AST 12 (0-37) U/l ALT 10 (0-40) U/l Alkaline Phosphatase 75 (39-117) U/L Total Protein 6.1 (5.9-8.4) gm/dL Albumin 2.8 L (3.2-5.2) gm/dL Triglycerides 66 (<150) mg/dl Calcium panel 11/20/17 Range/Units 04:49 Calcium 7.7 L (8.6-10.4) mg/dl Phosphorus 1.9 L (2.7-4.5) mg/dL Albumin 2.8 L (3.2-5.2) gm/dL Pituitary panel 11/20/17 Range/Units 04:49 Sodium 139 (133-145) mmol/L Potassium 2.8 L* (3.3-5.1) mmol/L Chloride 100 (96-108) mmol/L Carbon Dioxide 28 (22-30) mmol/L BUN 4 L (6-20) mg/dl Creatinine 0.3 L (0.7-1.2) mg/dl Glucose 115 H (70-105) mg/dL Calcium 7.7 L (8.6-10.4) mg/dl Adrenal panel 11/20/17 Range/Units 04:49 Sodium 139 (133-145) mmol/L Potassium 2.8 L* (3.3-5.1) mmol/L Chloride 100 (96-108) mmol/L Carbon Dioxide 28 (22-30) mmol/L BUN 4 L (6-20) mg/dl Creatinine 0.3 L (0.7-1.2) mg/dl Glucose 115 H (70-105) mg/dL Calcium 7.7 L (8.6-10.4) mg/dl Total Bilirubin < 0.2 (0.0-1.0) mg/dL AST 12 (0-37) U/l ALT 10 (0-40) U/l Alkaline Phosphatase 75 (39-117) U/L Total Protein 6.1 (5.9-8.4) gm/dL Albumin 2.8 L (3.2-5.2) gm/dL Assessment and Plan (1) Status post colostomy Status: Acute Assessment and plan: Continue present treatment and support Start . Diet up to 1600 nicol per day Current Visit: Yes (2) Spastic quadriplegia Status: Chronic Assessment and plan: Continue home medications via PEG tube Current Visit: No (3) Static encephalopathy Status: Chronic Current Visit: No (4) Seizure disorder Status: Chronic Assessment and plan: Continue home medications through PEG tube Current Visit: No (5) CP (cerebral palsy), quadriplegic, infantile Status: Chronic Current Visit: No - Time Spent With Patient Total time spent is greater than 50% in coordination of care (as documented) at patient's floor/unit and/or counseling patient:
[2017-11-20] MEDS ORDERED: POTASSIUM CHLORIDE 20 MEQ PACKET ONE (16:07)
[2017-11-20] MEDS ORDERED: POTASSIUM CHLORIDE 20 MEQ/15 ML ML PT ONE (16:08)
[2017-11-20] MEDS: morphine 20 MG/ML ORAL.CONC SL PRN ×2 (16:13→20:16)
[2017-11-20] MEDS: NEUTRA PHOS 1 PACKET PO SCH (22:18)
[2017-11-20] MEDS: ZOLPIDEM 5 MG TABLET PO SCH (22:18)
[2017-11-20] MEDS: traZODone HCL 150 MG TABLET PO SCH (23:47)
[2017-11-21] MEDS: IPRATROPIUM/ALBUTEROL 3 ML AMPUL.NEB NEB SCH ×3 (03:58→11:05)
[2017-11-21] MEDS: morphine 20 MG/ML ORAL.CONC SL PRN ×3 (03:59→14:46)
[2017-11-21 07:39] LABS: Basophils # (Auto) 0 K/mcL (0.0-0.3); Basophils % (Auto) 0.2 % (0.0-2.0); Eosinophils # (Auto) 0.1 K/mcL (0.0-0.7); Eosinophils % (Auto) 1.3 % (0.0-7.0); Granulocytes % (Auto) 61.7 % (38.0-78.0); Lymphocytes # (Auto) 2.3 K/mcL (1.5-4.8); Mean Corpuscular HGB Conc 32.8 g/dL (31.0-36.0); Mean Corpuscular Hemoglobin 31.2 pg (26.0-34.0); Monocytes # (Auto) 0.6 K/mcL (0.1-0.9); Monocytes % (Auto) 7.8 % (1.0-12.0); Platelet Count 280 K/mcL (140-440); RBC 3.29 M/mcL (4.50-5.90)
[2017-11-21 08:30] LABS: ALT/SGPT 10 U/l (0-40); Albumin/Globulin Ratio 0.9 (1.0-2.3); Alkaline Phosphatase 75 U/L (39-117); Bilirubin,Direct < 0.2 mg/dL (0.0-0.3); Blood Urea Nitrogen 8 mg/dl (6-20); Gamma Glutamyl Transpeptidase 88 U/L (8-61)
[2017-11-21] MEDS: NEUTRA PHOS 1 PACKET PO SCH (08:30)
[2017-11-21] MEDS: PHENobarbital 32.4 MG TABLET PT SCH (08:31)
--- NOTE | 2017-11-21 12:08 | Discharge Summary ---
Providers - Providers Patient information: Note initiated : 11/21/17 at 12:04 pm Service Date, if different from initiated Date: [] Patient: Mark Brewer 27 y/o M admitted on 11/15/17 for Permanent Colostomy. Chief Complaint: [] Date of admission: 11/15/17 Discharge date: 11/21/17 Attending physician: Gracy Membreno Hospitalization Hospital course: 27-year-old male underwent a colostomy for diversion of fecal stream due to poor healing stage IV sacral decubitus. The colostomy was done uneventfully on 15 november. He was admitted and has been followed closely. He did not have any problems referable to the procedure except for postoperative ileus. On the third postoperative day he started passing gas and his intake through his gastrostomy was increased. He is doing well now and is on his regular diet which is primarily a pureed diet. He is having regular bowel movements. His abdominal incision is healing uneventfully. He was followed by wound care and there is slow changes in his decubitus ulcer. The mother has been informed as to how to change his stoma bags. He is stable for discharge and will be followed up in the office on November. Discharge diagnosis: stage IV decubitus ulcer Secondary discharge diagnosis: Quadriplegic cerebral palsy Seizure disorder Reason for admission: poorly healing sacral decubitus due to fecal contamination Procedures: End colostomy for fecal diversion Pertinent studies/significant findings: None Complications: None Exam Temp Pulse Resp BP Pulse Ox 98.5 F 102 H 18 106/67 98 11/21/17 11:57 11/21/17 11:57 11/21/17 11:57 11/21/17 11:57 11/21/17 11:57 - General physical appearance no distress, moderate pain, cachectic, chronically ill, other (quadriplegia with severe cerebral palsy) - Eyes other - ENT normal pinna, normal nares, normal mucosa, no congestion, decreased hearing - Head Head exam IM: Present: atraumatic ( microcephaly) - Neck no masses, no bruits, trachea midline, no lymphadectomy, no venous distension - Cardiovascular Cardiovascular exam IM: Present: normal rate and rhythm, RRR, +S1, +S2, tachycardia. Absent: irregular rhythm, JVD - Respiratory normal expansion, normal respiratory effort, other ( bilateral coarse tubular breath sounds) - Abdomen Abdomen: Present: soft, tender, bowel sounds, wound ( incision healing uneventfully; stoma functioning in right lower quadrant) Hernia: Present: none - Genitourinary Present: normal penis with no external lesions, other ( suprapubic catheter without inflammation) - Rectum Rectum: Present: normal sphincter tone, no hemorrhoids, no tenderness, no masses , no bleeding - Integumentary Present: no rash, other ( stage IV sacral decubitus) - Neurologic Present: other ( quadriplegia with bilateral upper and lower extremity flexion contractures; clinically blind) - Musculoskeletal Present: other ( immobile) - Psychiatric Present: other ( unable to assess mental condition) Discharge Plan - Patient/Caregiver Discharge Instructions Diet: Dysphagia Pureed ( diet will be managed by mother and sister) Additional Instructions: Home health nurse for assistance with stoma care - Follow up Plan Follow up with: Gracy Membreno MD [Physician] - 11/23/17 1:15 pm Disposition: Home Health Service Prognosis: Fair Rehab Potential: Fair I certify that the patient requires SNF services.: No Overall status at discharge: patient is back to baseline Pending Studies Resuscitation Status Do Not Resuscitate Diet Dysphagia Pureed Diet Level 1 Start MonNovember 20 1511 Albuterol/Ipratropium (Duoneb) 3 ml NEB Q4HRT KALEB Last Admin: 11/21/17 11:05 Dose: 3 ml Admin: 11/21/17 07:53 Dose: 3 ml Admin: 11/21/17 03:58 Dose: 3 ml Admin: 11/20/17 23:07 Dose: 3 ml Admin: 11/20/17 19:11 Dose: 3 ml Admin: 11/20/17 15:12 Dose: 3 ml Admin: 11/20/17 11:17 Dose: 3 ml Admin: 11/20/17 06:57 Dose: 3 ml Admin: 11/20/17 03:07 Dose: 3 ml Admin: 11/19/17 23:11 Dose: 3 ml Admin: 11/19/17 19:26 Dose: 3 ml Admin: 11/19/17 15:23 Dose: 3 ml Admin: 11/19/17 10:51 Dose: 3 ml Admin: 11/19/17 06:39 Dose: 3 ml Admin: 11/19/17 03:00 Dose: 3 ml Admin: 11/18/17 23:12 Dose: 3 ml Admin: 11/18/17 19:35 Dose: 3 ml Admin: 11/18/17 15:26 Dose: 3 ml Admin: 11/18/17 10:40 Dose: 3 ml Admin: 11/18/17 08:08 Dose: Not Given Admin: 11/18/17 02:54 Dose: 3 ml Admin: 11/17/17 23:38 Dose: 3 ml Admin: 11/17/17 18:56 Dose: 3 ml Admin: 11/17/17 15:12 Dose: 3 ml Admin: 11/17/17 10:23 Dose: 3 ml Admin: 11/17/17 07:12 Dose: Not Given Admin: 11/17/17 02:40 Dose: 3 ml Admin: 11/16/17 23:20 Dose: Not Given Admin: 11/16/17 19:07 Dose: 3 ml Admin: 11/16/17 15:40 Dose: 3 ml Admin: 11/16/17 11:18 Dose: 3 ml Admin: 11/16/17 06:30 Dose: 3 ml Admin: 11/16/17 03:47 Dose: 3 ml Admin: 11/16/17 03:12 Dose: Not Given Admin: 11/15/17 23:20 Dose: Not Given Admin: 11/15/17 19:46 Dose: 3 ml Admin: 11/15/17 16:24 Dose: Not Given Admin: 11/15/17 11:00 Dose: Not Given Morphine Sulfate (Morphine) 15 mg SL Q4HP PRN PRN Reason: Pain Last Admin: 11/21/17 08:37 Dose: 15 mg Admin: 11/21/17 03:59 Dose: 15 mg Admin: 11/20/17 20:16 Dose: 15 mg Admin: 11/20/17 16:13 Dose: 15 mg Glycopyrrolate [ (Cuvposa] 5 Ml) 1 dose PO TID KALEB Last Admin: 11/20/17 22:22 Dose: 1 dose Admin: 11/20/17 18:35 Dose: Admin: 11/20/17 13:05 Dose: Not Given Admin: 11/19/17 20:32 Dose: Admin: 11/19/17 15:16 Dose: Not Given Admin: 11/19/17 09:12 Dose: Admin: 11/18/17 21:31 Dose: Admin: 11/18/17 14:18 Dose: Admin: 11/18/17 08:20 Dose: 1 dose Admin: 11/17/17 20:26 Dose: 1 dose Admin: 11/17/17 17:18 Dose: 1 dose Admin: 11/17/17 09:34 Dose: 1 dose Admin: 11/16/17 20:39 Dose: 1 dose Admin: 11/16/17 16:27 Dose: 1 dose Phenobarbital (Phenobarbital) 64.8 mg PT BID [facility] Last Admin: 11/21/17 08:31 Dose: 64.8 mg Admin: 11/20/17 20:15 Dose: 64.8 mg Admin: 11/20/17 10:05 Dose: 64.8 mg Admin: 11/19/17 20:31 Dose: Admin: 11/19/17 18:55 Dose: 64.8 mg Admin: 11/19/17 09:12 Dose: 64.8 mg Admin: 11/18/17 20:25 Dose: 64.8 mg Admin: 11/18/17 08:20 Dose: 64.8 mg Admin: 11/17/17 20:26 Dose: 64.8 mg Admin: 11/17/17 09:30 Dose: 64.8 mg Admin: 11/16/17 20:39 Dose: 64.8 mg Admin: 11/16/17 08:27 Dose: 64.8 mg Admin: 11/15/17 20:27 Dose: 64.8 mg Potassium/Phosphorus/Sodium (Neutra Phos) 1 packet PO BID [facility] Last Admin: 11/21/17 08:30 Dose: 1 packet Admin: 11/20/17 22:18 Dose: 1 packet Simethicone (Simethicone) 80 mg PO Q6HP PRN PRN Reason: GAS Last Admin: 11/20/17 22:20 Dose: 80 mg Admin: 11/20/17 03:47 Dose: 80 mg Admin: 11/19/17 09:05 Dose: 80 mg Admin: 11/18/17 21:25 Dose: 80 mg Admin: 11/18/17 10:27 Dose: 80 mg Trazodone HCl (Desyrel) 300 mg PO HS [facility] Last Admin: 11/20/17 23:47 Dose: 300 mg Admin: 11/19/17 23:47 Dose: 300 mg Admin: 11/18/17 23:03 Dose: 300 mg Admin: 11/17/17 20:26 Dose: 300 mg Admin: 11/16/17 20:38 Dose: 300 mg Admin: 11/15/17 22:51 Dose: 300 mg Zolpidem Tartrate (Ambien) 10 mg PO HS KALEB Last Admin: 11/20/17 22:18 Dose: 10 mg Admin: 11/19/17 22:42 Dose: 10 mg Admin: 11/18/17 21:22 Dose: 10 mg Admin: 11/17/17 20:26 Dose: 10 mg Admin: 11/16/17 20:38 Dose: 10 mg Admin: 11/15/17 21:45 Dose: 10 mg Shift Summary 11/21/17 04:33 Shift Summary by Eli Mcgee Patient slept well this shift. Patient's sister at bedside all night doing most of the cares for patient. On Pureed diet via PEG tube. Family's feeding patient with the food they feed him at home via PEG. Medicated with Morphine solution 15 mg x 2, Simethicone x1. No IV line. ABO discontinued yesterday. RLQ colostomy , emptied 350 brown, liquid stool. Midline incision bruce and tegaderm in place. PEG tube dressing changed. SPC drained 1200 mls yellowish urine. Pressure ulcer composite dressing CDI, left post upper thigh mepilex in place, right hip mepilex CDI. Dressings to be changed every other day or PRN, was changed yesterday by wound care nurse. Soft wrist restraints on, safety checks done. [place] 120's, BP stable. Afebrile. Patient for discharge today. Initialized on 11/21/17 04:33 - END OF NOTE
[2017-11-21] MEDS ORDERED: POTASSIUM CHLORIDE 20 MEQ/15 ML ML PT ONE (12:29)
[2017-11-21] MEDS: GLYCOPYRROLATE PO SCH (14:40)
--- NOTE | 2017-11-22 13:20 | Operative Note ---
DATE OF OPERATION: 11/15/2017 PREOPERATIVE DIAGNOSIS: Sacral decubitus with infantile quadriplegic cerebral palsy. POSTOPERATIVE DIAGNOSIS: Same. PROCEDURE: Permanent end colostomy. SURGEON: Gracy Membreno MD FINDINGS: No abnormality except for redundant sigmoid colon. DESCRIPTION: Under general anesthesia, the patient's abdomen was prepped and draped in a sterile field. A midline incision was made above and below the umbilicus. The incision extended through the subcutaneous tissue to the fascia and into the peritoneal cavity. Manual exploration of abdomen was unremarkable. He had a very redundant sigmoid colon. Because of the placement of the PEG tube and the suprapubic catheter on the left side there was not enough room in his very small body to place stoma on the left. With the increased redundancy; however, it was easier to pull the sigmoid colon into the right lower quadrant. The redundant sigmoid colon was divided using a contour stapler. The distal end was further stapled using a TA 16 stapler since this would be permanent. The point for the stoma was made fci the distance between the umbilicus and anterior superior iliac spine. Muscle splitting incision was made. The muscles ____ were stretched and the end of the colon was pulled through the opening. The colon was then circumferentially sutured to the peritoneum using eight sutures of 3-0 silk. The mesentery was sutured to the lateral wall to prevent herniation. The distal ileum was inspected and there was no bleeding. Irrigation was carried until the fluid was clear. The fascia was closed using running #1 Prolene. Subcutaneous tissue was closed with 2-0 Monocryl. The skin was closed with bruce. The midline incision was covered and the stoma was matured. The end of the colon was opened and at the wall of the colon was sutured to the anterior rectus fascia using 6 sutures of interrupted silk placed circumferentially. An inverting stitch was then sutured in the colon to the dermis of the skin. Five of these sutures were placed in total and good inversion of the end of the bowel was carried out. The bowel was then sutured circumferentially using a running locking 3-0 Vicryl. A Tegaderm dressing was placed over the incision and a colostomy appliance was placed over the stoma. Patient tolerated the procedure well. He was successfully awakened and transferred to the postanesthetic care unit in satisfactory condition. LCS:luis Job ID: [id number] Doc ID: [id number] Gracy Membreno M.D.
== END 2017-11-21 15:10 | disposition home health service (06) | DRG 981 ==
LOC: EDSTATUS 11-14 15:00 → MEDSUR 11-15 04:48
PROVIDERS: ADMIT Family Medicine Adult Medicine; ATTEND Family Medicine Adult Medicine